=== PATIENT | female | born 1945 | race Caucasian/White ===

== ENCOUNTER 2025-02-25 06:20 | Day surgery (SDC) | payer MEDICARE, OTHER, SELFPAY | END 2025-02-25 12:47 | disposition home or self-care (01) | LOC: GI 06:20 | PROVIDERS: ATTENDING PHYSICIAN Internal Medicine Gastroenterology | DX: K64.8 Other hemorrhoids (principal); K57.30 Diverticulosis of large intestine without perforation or abscess without bleeding; K56.699 Other intestinal obstruction unspecified as to partial versus complete obstruction; R19.4 Change in bowel habit | CPT/HCPCS: 45380; 88305 ==